=== PATIENT | female | born 1995 | race Caucasian/White ===

== ENCOUNTER 2017-08-17 12:35 | Emergency (ER) | payer SELFPAY ==
[2017-08-17] MEDS ORDERED: LORAZEPAM 2 MG/ML SOL IV ONE (12:47)
[2017-08-17 12:52] LABS: BASOPHILS % (AUTO) 1 % (0-3); EOSINOPHILS % (AUTO) 1 % (0-9); HEMATOCRIT 40 % (35-47); MEAN CORPUSCULAR VOLUME 84 fL (81-99); MONOCYTES % (AUTO) 9.2 % (0-12); NEUTROPHILS % (AUTO) 58.9 % (37-80)
[2017-08-17 13:00] LABS: ALBUMIN 4.1 gm/dl (3.4-5.0); ALT 16 IU/L (14-63); CALCIUM 8.9 mg/dl (8.5-10.1); GLOM FILT RATE 71 mL/min (>60); POTASSIUM 3.4 mMol/L (3.5-5.1); SODIUM 140 mMol/L (136-145)
[2017-08-17] MEDS ORDERED: SODIUM CHLORIDE 0.9% 1000 ML SOL IV SCH (13:00)
[2017-08-17 13:39] VITALS: O2SAT 99
[2017-08-17 14:07] VITALS: BP 110/72; PULSE 69; RESP 20; TEMP 99.9
[2017-08-17 14:07] LABS: BILIRUBIN,URINE NEGATIVE (NEGATIVE); COLOR,URINE Yellow; GLUCOSE, URINE (UA) NEGATIVE (NEGATIVE); KETONES,URINE 1+ (NEGATIVE); LEUKOCYTE ESTERASE ,URINE 1+ (NEGATIVE); NITRATE,URINE NEGATIVE (NEGATIVE); OCCULT BLOOD,URINE 3+ (NEG-TRACE); UROBILINOGEN,URINE 0.2 (0.2-1.0 EU)
[2017-08-17 14:29] LABS: AMPHETAMINES NEGATIVE (NEGATIVE); APPEARANCE,URINE SL CLOUDY; METHADONE NEGATIVE (NEGATIVE); OPIATES(OP13) NEGATIVE (NEGATIVE); OXYCODONE(OXY) NEGATIVE (NEGATIVE); PROPOXYPHENE(PPX) NEGATIVE (NEGATIVE); TRICYCLIC ANTIDEPRESSANTS NEGATIVE (NEGATIVE)
== END 2017-08-17 14:48 | disposition home or self-care (01) | DRG 880 ==
LOC: ED 12:35
DX: F41.9 Anxiety disorder, unspecified (principal)
CPT/HCPCS: 36415; 80053; 80305; 80307; 81001; 84703; 85025; 93005; 96365; 96366; 99284